=== PATIENT | female | born 1995 | race African-American/Black ===

== ENCOUNTER → 2023-10-20 11:19 | Outpatient (REF) | payer OTHER, SELFPAY ==
[2023-10-20 12:11] LABS: COVID-19 Antigen Negative (Negative)
== END ==
LOC: REG 11:19
PROVIDERS: ATTENDING PHYSICIAN Physician Assistant; FAMILY PHYSICIAN Nurse Practitioner Family
DX: U07.1 COVID-19 (principal)
CPT/HCPCS: 87811